=== PATIENT | male | born 1930 | race Caucasian/White ===

== ENCOUNTER 2017-06-18 11:39 | Inpatient (IN) | payer MEDICARE, OTHER ==
[~2017-06-18] VITALS: Ht 175.3 cm; Wt 77.3 kg
[~2017-06-18 11:39] MED LIST: AMIO200T57 PO; AMLO5TAB16 PO; ASPI-611 PO; ATOR10TA PO; FAMO-128 PO; LEVO25TA7 PO; MEMA21CA PO
[2017-06-18 12:06] LABS: BASOPHILS # (AUTO) 0.1 X10'3 (0-0.2); BASOPHILS % (AUTO) 1.4 % (0-1); EOSINOPHILS # (AUTO) 0.2 X10'3 (0-0.9); EOSINOPHILS % (AUTO) 1.4 % (0-6); HEMATOCRIT 35.6 % (42.0-52.0); HEMOGLOBIN 12.1 g/dl (14.0-17.9); LYMPHOCYTES # (AUTO) 1.3 X10'3 (1.1-4.8); LYMPHOCYTES % (AUTO) 12.4 % (21-51); MEAN CORPUSCULAR HGB CONC 34.1 % (33.0-36.5); MEAN CORPUSCULAR VOLUME 90.9 FL (78-98); MEAN PLATELET VOLUME 9.4 FL (7.4-10.4); MONOCYTES % (AUTO) 9.8 % (2-12); NEUTROPHILS # (AUTO) 7.9 X10'3 (1.8-7.7); PLATELET COUNT 191 X10'3 (140-440); RED BLOOD COUNT 3.92 X10'6 (4.70-6.10); RED CELL DISTRIBUTION WIDTH 16.3 % (11.5-14.5); WHITE BLOOD COUNT 10.6 X10'3 (4.5-11.0)
[2017-06-18] MEDS ORDERED: sucralfate 1gm/10ml UD suspension PO ONE (12:10)
[2017-06-18] MEDS ORDERED: pantoprazole 40 MG vial IV ONE (12:10)
[2017-06-18] MEDS ORDERED: mag hydrox/Alum hydrox/simeth 30ml oral suspension PO ONE (12:10)
[2017-06-18] MEDS ORDERED: LIDOcaine Viscous 15ml cup MM PRN (12:10)
[2017-06-18 12:14] LABS: INR 1.2 INR; PROTHROMBIN TIME 11.9 SECONDS (9.0-12.0)
[2017-06-18 12:20] LABS: ALANINE AMINOTRANSFERASE 33 U/L (12-78); ALBUMIN 3.5 G/DL (3.4-5.0); ALBUMIN/GLOBULIN RATIO 0.9 (1.1-1.5); ALKALINE PHOSPHATASE 82 IU/L (46-116); AMYLASE 35 U/L (25-115); ANION GAP 8 (8-16); ASPARTATE AMINO TRANSFERASE 30 U/L (10-37); BILIRUBIN,TOTAL 0.6 MG/DL (0.1-1.0); BLOOD UREA NITROGEN 31 MG/DL (7-18); BUN/CREATININE RATIO 18.6 (5.4-32.0); CALCIUM 9.1 MG/DL (8.5-10.1); CHLORIDE 102 MMOL/L (99-107); CREATININE 1.67 MG/DL (0.60-1.10); GLUCOSE 138 MG/DL (70-104); LIPASE 50 U/L (73-393); POTASSIUM 4.4 MMOL/L (3.5-5.1); SODIUM 136 MMOL/L (135-145); TOTAL CARBON DIOXIDE 26.5 MMOL/L (24-32); TOTAL PROTEIN 7.2 G/DL (6.4-8.2); eGFR 39 ML/MIN
[2017-06-18] MEDS: sucralfate 1gm/10ml UD suspension PO SCH (12:21)
[2017-06-18 12:53] LABS: CLARITY,URINE CLEAR (Clear); COLOR,URINE YELLOW (Yellow); GLUCOSE, URINE NEGATIVE (Neg); KETONES,URINE NEGATIVE (Neg); LEUKOCYTE ESTERASE ,URINE NEGATIVE (Neg); NITRITES, URINE NEGATIVE (Neg); OCCULT BLOOD,URINE NEGATIVE (Neg); PROTEIN,URINE NEGATIVE (Neg); UROBILINOGEN,URINE 0.2 E.U/dL (0.2-1.0)
[2017-06-18 12:56] LABS: UA COLLECTION TYPE CLN CATCH MIDSTREAM
[2017-06-18] MEDS ORDERED: acetaminophen 325mg tablet PO PRN (15:10)
[2017-06-18] MEDS ORDERED: magnesium hydroxide 30ml (MOM) UD suspension PO PRN (15:10)
[2017-06-18] MEDS ORDERED: ondansetron/PF 4mg/2ml inj IV PRN (15:10)
[2017-06-18] MEDS ORDERED: mag hydrox/Alum hydrox/simeth 30ml oral suspension PO PRN (15:10)
[2017-06-18] MEDS: diatr meglu/diatrizoate 30ml oral sol.-(3 dose) bottle PO SCH ×3 (15:20→17:07)
[2017-06-18] MEDS ORDERED: LIDOcaine 2% 10ml TOPICAL JELLY (Urojet) MM ONE (15:55)
[2017-06-18] MEDS: normal saline 1000ml 1,000 ML IV SCH (16:51)
[2017-06-18 21:30] VITALS: BP 130/64
[2017-06-18] MEDS: heparin, porcine 5000 units/ml vial SQ SCH (21:50)
[2017-06-19] MEDS: normal saline 1000ml 1,000 ML IV SCH ×4 (01:08→23:49)
[2017-06-19 04:00] VITALS: BP 108/61
[2017-06-19 05:47] LABS: BASOPHILS % (AUTO) 0.3 % (0-1); EOSINOPHILS # (AUTO) 0.1 X10'3 (0-0.9); EOSINOPHILS % (AUTO) 1.4 % (0-6); HEMATOCRIT 30.4 % (42.0-52.0); HEMOGLOBIN 10.2 g/dl (14.0-17.9); LYMPHOCYTES # (AUTO) 1.1 X10'3 (1.1-4.8); LYMPHOCYTES % (AUTO) 13.8 % (21-51); MEAN CORPUSCULAR HEMOGLOBIN 30.8 PG (27.0-31.0); MEAN CORPUSCULAR HGB CONC 33.7 % (33.0-36.5); MEAN CORPUSCULAR VOLUME 91.4 FL (78-98); MEAN PLATELET VOLUME 10.4 FL (7.4-10.4); MONOCYTES # (AUTO) 1.2 X10'3 (0-0.9); MONOCYTES % (AUTO) 14.3 % (2-12); NEUTROPHILS # (AUTO) 5.6 X10'3 (1.8-7.7); NEUTROPHILS % (AUTO) 70.2 % (42-75); PLATELET COUNT 166 X10'3 (140-440); RED BLOOD COUNT 3.32 X10'6 (4.70-6.10); RED CELL DISTRIBUTION WIDTH 16.1 % (11.5-14.5)
[2017-06-19 05:56] LABS: ALANINE AMINOTRANSFERASE 24 U/L (12-78); ALBUMIN 2.4 G/DL (3.4-5.0); ALBUMIN/GLOBULIN RATIO 0.8 (1.1-1.5); ALKALINE PHOSPHATASE 55 IU/L (46-116); ANION GAP 7 (8-16); ASPARTATE AMINO TRANSFERASE 24 U/L (10-37); BILIRUBIN,TOTAL 0.8 MG/DL (0.1-1.0); BLOOD UREA NITROGEN 29 MG/DL (7-18); BUN/CREATININE RATIO 20.3 (5.4-32.0); CHLORIDE 105 MMOL/L (99-107); CREATININE 1.43 MG/DL (0.60-1.10); GLUCOSE 93 MG/DL (70-104); POTASSIUM 4.1 MMOL/L (3.5-5.1); SODIUM 139 MMOL/L (135-145); TOTAL CARBON DIOXIDE 26.6 MMOL/L (24-32); TOTAL PROTEIN 5.3 G/DL (6.4-8.2); eGFR 47 ML/MIN
[2017-06-19 07:00] VITALS: BP 137/64
[2017-06-19] MEDS: heparin, porcine 5000 units/ml vial SQ SCH ×2 (07:16→20:30)
[2017-06-19] MEDS ORDERED: RISP0.5T3 PO (10:23)
[2017-06-19] MEDS ORDERED: ASPI81TA52 PO (10:23)
[2017-06-19] MEDS ORDERED: FAMO20TA8 PO (10:23)
[2017-06-19] MEDS ORDERED: ATOR10TA70 PO (10:23)
[2017-06-19] MEDS ORDERED: AMIO200T57 PO (10:23)
[2017-06-19] MEDS ORDERED: LEVO25TA7 PO (10:24)
[2017-06-19 11:07] VITALS: BP 106/55
[2017-06-19] MEDS: sucralfate 1gm/10ml UD suspension PO SCH (12:43)
[2017-06-19] MEDS ORDERED: lactulose 20gm/30ml cup PO ONE ×2 (13:05→15:00)
[2017-06-19] MEDS ORDERED: aspirin 81mg tablet.DR PO ONE (13:45)
[2017-06-19] MEDS ORDERED: amiodarone 200mg tablet PO ONE (13:45)
[2017-06-19] MEDS ORDERED: atorvastatin 10mg tablet PO ONE (13:45)
[2017-06-19] MEDS ORDERED: risperiDONE 0.5mg tablet PO ONE (14:40)
[2017-06-19] MEDS: mineral oil 133ml enema RC PRN ×2 (14:58→15:13)
[2017-06-19] MEDS ORDERED: mineral oil 133ml enema RC PRN (15:00)
[2017-06-19 20:00] VITALS: BP 149/75
[2017-06-20] VITALS: BP 148/90
[2017-06-20] MEDS ORDERED: LORazepam 2 mg/ml vial IV ONE (03:55)
[2017-06-20 07:00] VITALS: BP 144/78
[2017-06-20] MEDS: aspirin 81mg tablet.DR PO SCH (08:35)
[2017-06-20] MEDS: amiodarone 200mg tablet PO SCH (08:35)
[2017-06-20] MEDS: risperiDONE 0.5mg tablet PO SCH (08:36)
[2017-06-20] MEDS: levoTHYROXINE 25mcg tablet PO SCH (08:37)
[2017-06-20] MEDS: atorvastatin 10mg tablet PO SCH (08:37)
[2017-06-20] MEDS: heparin, porcine 5000 units/ml vial SQ SCH ×2 (08:40→20:12)
[2017-06-20 08:43] LABS: % FREE PSA 16.9 % (.); PSA, FREE 0.44 ng/mL
[2017-06-20] MEDS ORDERED: bisacodyl 10mg suppository rectal RC STA (09:23)
[2017-06-20] MEDS ORDERED: mineral oil 133ml enema RC PRN (09:25)
[2017-06-20 09:42] LABS: BASOPHILS % (AUTO) 0.5 % (0-1); EOSINOPHILS # (AUTO) 0.2 X10'3 (0-0.9); EOSINOPHILS % (AUTO) 2.3 % (0-6); HEMATOCRIT 31.6 % (42.0-52.0); HEMOGLOBIN 10.6 g/dl (14.0-17.9); LYMPHOCYTES # (AUTO) 1.1 X10'3 (1.1-4.8); LYMPHOCYTES % (AUTO) 15.6 % (21-51); MEAN CORPUSCULAR HEMOGLOBIN 30.9 PG (27.0-31.0); MEAN CORPUSCULAR HGB CONC 33.6 % (33.0-36.5); MEAN CORPUSCULAR VOLUME 91.9 FL (78-98); MEAN PLATELET VOLUME 10.2 FL (7.4-10.4); MONOCYTES # (AUTO) 0.9 X10'3 (0-0.9); MONOCYTES % (AUTO) 12.8 % (2-12); NEUTROPHILS # (AUTO) 4.8 X10'3 (1.8-7.7); NEUTROPHILS % (AUTO) 68.8 % (42-75); PLATELET COUNT 173 X10'3 (140-440); RED BLOOD COUNT 3.44 X10'6 (4.70-6.10); RED CELL DISTRIBUTION WIDTH 16.1 % (11.5-14.5); WHITE BLOOD COUNT 6.9 X10'3 (4.5-11.0)
[2017-06-20 10:01] LABS: ALANINE AMINOTRANSFERASE 28 U/L (12-78); ALBUMIN 2.9 G/DL (3.4-5.0); ALKALINE PHOSPHATASE 60 IU/L (46-116); ANION GAP 9 (8-16); ASPARTATE AMINO TRANSFERASE 37 U/L (10-37); BILIRUBIN,TOTAL 0.7 MG/DL (0.1-1.0); BLOOD UREA NITROGEN 21 MG/DL (7-18); BUN/CREATININE RATIO 16.8 (5.4-32.0); CALCIUM 8.3 MG/DL (8.5-10.1); CHLORIDE 105 MMOL/L (99-107); CREATININE 1.25 MG/DL (0.60-1.10); GLUCOSE 85 MG/DL (70-104); POTASSIUM 3.8 MMOL/L (3.5-5.1); SODIUM 138 MMOL/L (135-145); TOTAL CARBON DIOXIDE 23.9 MMOL/L (24-32); TOTAL PROTEIN 5.9 G/DL (6.4-8.2); eGFR 55 ML/MIN
[2017-06-20] MEDS: magnesium hydroxide 30ml (MOM) UD suspension PO SCH ×7 (11:16→23:00)
[2017-06-20] MEDS: normal saline 1000ml 1,000 ML IV SCH ×2 (11:17→20:13)
[2017-06-20 11:32] VITALS: BP 142/80
[2017-06-20] MEDS ORDERED: nitroGLYCERIN 0.4mg SUBLingual tab SL PRN (16:45)
[2017-06-20] MEDS ORDERED: HYDROcodone/acetaminophen 5mg/325mg tablet PO PRN (16:45)
[2017-06-20 18:00] VITALS: BP 119/53
[2017-06-21] VITALS: BP 143/76
[2017-06-21] MEDS: magnesium hydroxide 30ml (MOM) UD suspension PO SCH ×8 (01:00→15:00)
[2017-06-21 06:09] LABS: BASOPHILS % (AUTO) 0.5 % (0-1); EOSINOPHILS # (AUTO) 0.3 X10'3 (0-0.9); EOSINOPHILS % (AUTO) 4.2 % (0-6); HEMATOCRIT 30.3 % (42.0-52.0); HEMOGLOBIN 10.1 g/dl (14.0-17.9); LYMPHOCYTES # (AUTO) 1.2 X10'3 (1.1-4.8); LYMPHOCYTES % (AUTO) 16.2 % (21-51); MEAN CORPUSCULAR HEMOGLOBIN 30.6 PG (27.0-31.0); MEAN CORPUSCULAR HGB CONC 33.3 % (33.0-36.5); MEAN CORPUSCULAR VOLUME 91.8 FL (78-98); MEAN PLATELET VOLUME 9.9 FL (7.4-10.4); MONOCYTES % (AUTO) 13.4 % (2-12); NEUTROPHILS # (AUTO) 4.8 X10'3 (1.8-7.7); NEUTROPHILS % (AUTO) 65.7 % (42-75); PLATELET COUNT 172 X10'3 (140-440); RED CELL DISTRIBUTION WIDTH 15.5 % (11.5-14.5); WHITE BLOOD COUNT 7.4 X10'3 (4.5-11.0)
[2017-06-21 06:19] LABS: ALANINE AMINOTRANSFERASE 30 U/L (12-78); ALBUMIN 2.7 G/DL (3.4-5.0); ALBUMIN/GLOBULIN RATIO 0.9 (1.1-1.5); ALKALINE PHOSPHATASE 55 IU/L (46-116); ANION GAP 9 (8-16); ASPARTATE AMINO TRANSFERASE 34 U/L (10-37); BILIRUBIN,TOTAL 0.7 MG/DL (0.1-1.0); BLOOD UREA NITROGEN 20 MG/DL (7-18); BUN/CREATININE RATIO 16.5 (5.4-32.0); CALCIUM 8.1 MG/DL (8.5-10.1); CHLORIDE 108 MMOL/L (99-107); CREATININE 1.21 MG/DL (0.60-1.10); GLUCOSE 88 MG/DL (70-104); POTASSIUM 3.9 MMOL/L (3.5-5.1); SODIUM 141 MMOL/L (135-145); TOTAL CARBON DIOXIDE 24.2 MMOL/L (24-32); TOTAL PROTEIN 5.7 G/DL (6.4-8.2); eGFR 57 ML/MIN
[2017-06-21 07:00] VITALS: BP 130/81
[2017-06-21] MEDS: normal saline 1000ml 1,000 ML IV SCH (09:27)
[2017-06-21] MEDS: amiodarone 200mg tablet PO SCH (09:33)
[2017-06-21] MEDS: atorvastatin 10mg tablet PO SCH (09:34)
[2017-06-21] MEDS: aspirin 81mg tablet.DR PO SCH (09:34)
[2017-06-21] MEDS: levoTHYROXINE 25mcg tablet PO SCH (09:34)
[2017-06-21] MEDS: risperiDONE 0.5mg tablet PO SCH (09:35)
[2017-06-21] MEDS: heparin, porcine 5000 units/ml vial SQ SCH (09:38)
[2017-06-21 12:00] VITALS: BP 142/76
== END 2017-06-21 16:37 | DRG 683 ==
LOC: ER 11:39 → ED HOLD 15:08 → SUR 3N 21:30
PROVIDERS: ADMIT Internal Medicine; ATTEND Family Medicine
PROC: 0T9B70Z Drainage of Bladder with Drainage Device, Via Natural or Artificial Opening (ICD-10-PCS; principal; 2017-06-18)
DX: N17.9 Acute kidney failure, unspecified (principal); J90 Pleural effusion, not elsewhere classified; I48.91 Unspecified atrial fibrillation; N13.4 Hydroureter; E86.0 Dehydration; F03.90 Unspecified dementia, unspecified severity, without behavioral disturbance, psychotic disturbance, mood disturbance, and anxiety; E03.9 Hypothyroidism, unspecified; E78.5 Hyperlipidemia, unspecified; K56.41 Fecal impaction; N13.39 Other hydronephrosis; K21.9 Gastro-esophageal reflux disease without esophagitis; K44.9 Diaphragmatic hernia without obstruction or gangrene; N32.0 Bladder-neck obstruction; N32.89 Other specified disorders of bladder; N40.0 Benign prostatic hyperplasia without lower urinary tract symptoms; I25.10 Atherosclerotic heart disease of native coronary artery without angina pectoris; M10.9 Gout, unspecified; I12.9 Hypertensive chronic kidney disease with stage 1 through stage 4 chronic kidney disease, or unspecified chronic kidney disease; K57.30 Diverticulosis of large intestine without perforation or abscess without bleeding; N18.9 Chronic kidney disease, unspecified; Z90.49 Acquired absence of other specified parts of digestive tract; Z95.0 Presence of cardiac pacemaker; Z79.899 Other long term (current) drug therapy; Z79.82 Long term (current) use of aspirin
CPT/HCPCS: 36415; 71045; 74176; 76700; 80053; 81003; 82150; 83690; 83880; 84153; 84154; 84484; 85025; 85610; 87070; 93005; 93306; 96374; 97110; 97116; 97161; 99285; A4315; A4353; C9113; J1644; J2060; J7030; Q9963

== ENCOUNTER 2017-09-12 16:33 | Inpatient (IN) | payer MEDICARE, OTHER ==
[~2017-09-12] VITALS: Ht 180.3 cm; Wt 75.0 kg
[~2017-09-12 16:33] MED LIST changes: +AMIO200T40 PO; -AMIO200T57 PO; -AMLO5TAB16 PO; -ASPI-611 PO; +ASPI81TA52 PO; -ATOR10TA PO; +ATOR10TA70 PO; -FAMO-128 PO; +FAMO20TA8 PO; -MEMA21CA PO; +RISP0.5T3 PO
[2017-09-12] MEDS ORDERED: fentaNYL/PF 50MCG/1 ML 2ML syringe IV ONE (16:45)
[2017-09-12] MEDS ORDERED: ondansetron/PF 4mg/2ml inj IV ONE (16:45)
[2017-09-12] MEDS ORDERED: normal saline 1000ML IV soln IV ONE (17:30)
[2017-09-12 17:31] LABS: BASOPHILS % (AUTO) 0.2 % (0-1); EOSINOPHILS # (AUTO) 0.1 X10'3 (0-0.9); EOSINOPHILS % (AUTO) 0.8 % (0-6); HEMATOCRIT 28.7 % (42.0-52.0); HEMOGLOBIN 9.4 g/dl (14.0-17.9); LYMPHOCYTES # (AUTO) 0.7 X10'3 (1.1-4.8); LYMPHOCYTES % (AUTO) 4.9 % (21-51); MEAN CORPUSCULAR HEMOGLOBIN 28.6 PG (27.0-31.0); MEAN CORPUSCULAR HGB CONC 32.7 % (33.0-36.5); MEAN CORPUSCULAR VOLUME 87.7 FL (78-98); MEAN PLATELET VOLUME 9.5 FL (7.4-10.4); MONOCYTES # (AUTO) 1.3 X10'3 (0-0.9); MONOCYTES % (AUTO) 9.6 % (2-12); NEUTROPHILS # (AUTO) 11.4 X10'3 (1.8-7.7); NEUTROPHILS % (AUTO) 84.5 % (42-75); PLATELET COUNT 209 X10'3 (140-440); RED BLOOD COUNT 3.27 X10'6 (4.70-6.10); RED CELL DISTRIBUTION WIDTH 16.8 % (11.5-14.5); WHITE BLOOD COUNT 13.4 X10'3 (4.5-11.0)
[2017-09-12 17:43] LABS: INR 1.2 INR; PROTHROMBIN TIME 12.3 SECONDS (9.0-12.0)
[2017-09-12 17:50] LABS: ALANINE AMINOTRANSFERASE 24 U/L (12-78); ALBUMIN 2.3 G/DL (3.4-5.0); ALBUMIN/GLOBULIN RATIO 0.6 (1.1-1.5); ALKALINE PHOSPHATASE 71 IU/L (46-116); ANION GAP 9 (8-16); ASPARTATE AMINO TRANSFERASE 20 U/L (10-37); BILIRUBIN,TOTAL 0.5 MG/DL (0.1-1.0); BLOOD UREA NITROGEN 39 MG/DL (7-18); BUN/CREATININE RATIO 23.2 (5.4-32.0); CALCIUM 8.5 MG/DL (8.5-10.1); CHLORIDE 106 MMOL/L (99-107); CREATININE 1.68 MG/DL (0.60-1.10); GLUCOSE 127 MG/DL (70-104); POTASSIUM 3.9 MMOL/L (3.5-5.1); SODIUM 141 MMOL/L (135-145); TOTAL CARBON DIOXIDE 26.4 MMOL/L (24-32); TOTAL PROTEIN 6.2 G/DL (6.4-8.2); eGFR 39 ML/MIN
[2017-09-12 17:54] LABS: CLARITY,URINE CLOUDY (Clear); COLOR,URINE YELLOW (Yellow); GLUCOSE, URINE NEGATIVE (Neg); KETONES,URINE NEGATIVE (Neg); LEUKOCYTE ESTERASE ,URINE LARGE (Neg); NITRITES, URINE NEGATIVE (Neg); OCCULT BLOOD,URINE LARGE (Neg); PH,URINE 5.5 (4.8-8.0); PROTEIN,URINE 30 mg/dl (Neg); UROBILINOGEN,URINE 0.2 E.U/dL (0.2-1.0)
[2017-09-12 17:57] LABS: UA COLLECTION TYPE FOLEY CATH
[2017-09-12] MEDS ORDERED: IBUP-1984 PO (17:58)
[2017-09-12] MEDS ORDERED: LORA0.5T PO (17:58)
[2017-09-12] MEDS ORDERED: DOCU-28 PO (17:58)
[2017-09-12] MEDS ORDERED: ACET-1008 PO (17:58)
[2017-09-12] MEDS ORDERED: acetaminophen 325mg tablet PO PRN (18:10)
[2017-09-12] MEDS ORDERED: bisacodyl 10mg suppository rectal RC PRN (18:10)
[2017-09-12] MEDS ORDERED: magnesium Cl slow-release 64mg tablet PO PRN (18:10)
[2017-09-12] MEDS ORDERED: ondansetron/PF 4mg/2ml inj IV PRN (18:10)
[2017-09-12] MEDS ORDERED: magnesium 4gm in 100ml NS 100 ML IV PRN (18:10)
[2017-09-12] MEDS ORDERED: magnesium 1gm/100ml D5W IVPB 100 ML IV PRN (18:10)
[2017-09-12] MEDS ORDERED: mag hydrox/Alum hydrox/simeth 30ml oral suspension PO PRN ×2 (18:10→18:25)
[2017-09-12] MEDS ORDERED: morphine 4 MG/ML inj SYRINge IV PRN (18:10)
[2017-09-12] MEDS ORDERED: potassium Cl 20 mEq SR tablet PO PRN ×2 (18:10)
[2017-09-12] MEDS ORDERED: magnesium hydroxide 30ml (MOM) UD suspension PO PRN (18:10)
[2017-09-12] MEDS ORDERED: potassium Cl 40MEQ/NS 500ml 500 ML IV PRN ×2 (18:10)
[2017-09-12 18:12] LABS: RBC,URINE 20-50 /HPF (0-2); WBC,URINE TNTC /HPF (0-4)
[2017-09-12 18:13] LABS: BACTERIA,URINE 4+ /HPF (Neg); SQUAMOUS EPITHELIAL CELL,UR FEW /LPF (FEW)
[2017-09-12] MEDS ORDERED: LORazepam 2 mg/ml vial IV PRN (18:15)
[2017-09-12] MEDS ORDERED: ASCO120G2 (18:16)
[2017-09-12] MEDS ORDERED: MELA3TAB PO (18:16)
[2017-09-12] MEDS ORDERED: POTA8TAB8 PO (18:16)
[2017-09-12] MEDS ORDERED: LEVO25TA2 PO (18:16)
[2017-09-12] MEDS ORDERED: MAG355OR18 PO (18:16)
[2017-09-12] MEDS ORDERED: TRAM50TA2 PO (18:16)
[2017-09-12] MEDS ORDERED: RISP0.5T74 PO (18:16)
[2017-09-12] MEDS ORDERED: FURO-150 PO (18:16)
[2017-09-12] MEDS ORDERED: LIDOCAINE GEL (18:16)
[2017-09-12] MEDS ORDERED: LORazepam 0.5 MG tablet PO PRN (18:25)
[2017-09-12] MEDS: potassium Cl 20mEq in NS 1,000 ML IV SCH (18:47)
[2017-09-12] MEDS: CefTRIAXone/D5W-Rocephin 1gm 50 ML IV SCH (18:47)
[2017-09-12] MEDS: risperiDONE 0.5mg tablet PO SCH (19:50)
[2017-09-12] MEDS: traMADol 50MG tablet PO SCH (19:50)
[2017-09-12] MEDS: docusate sod 100mg capsule PO SCH (19:50)
[2017-09-12] MEDS: famotidine 20mg tablet PO SCH (19:51)
[2017-09-12] MEDS ORDERED: docusate sod 100mg capsule PO SCH (20:00)
[2017-09-12] MEDS: Melatonin 3mg tablet PO SCH (21:00)
[2017-09-12 21:30] VITALS: BP 163/71
[2017-09-13] VITALS (18 sets, daily range): BP systolic 103–187; BP diastolic 48–87
[2017-09-13] MEDS: traMADol 50MG tablet PO SCH ×4 (02:00→20:00)
[2017-09-13] MEDS ORDERED: vancomycin inj. 750 MG in normal saline 250ml IV soln 250 ML IV SCH (03:00)
[2017-09-13 05:40] LABS: BASOPHILS % (AUTO) 0.1 % (0-1); EOSINOPHILS # (AUTO) 0.2 X10'3 (0-0.9); EOSINOPHILS % (AUTO) 1.6 % (0-6); HEMATOCRIT 30.3 % (42.0-52.0); HEMOGLOBIN 9.8 g/dl (14.0-17.9); LYMPHOCYTES # (AUTO) 1.1 X10'3 (1.1-4.8); LYMPHOCYTES % (AUTO) 8.6 % (21-51); MEAN CORPUSCULAR HEMOGLOBIN 28.7 PG (27.0-31.0); MEAN CORPUSCULAR HGB CONC 32.4 % (33.0-36.5); MEAN CORPUSCULAR VOLUME 88.6 FL (78-98); MEAN PLATELET VOLUME 9.8 FL (7.4-10.4); MONOCYTES # (AUTO) 1.4 X10'3 (0-0.9); MONOCYTES % (AUTO) 11.5 % (2-12); NEUTROPHILS # (AUTO) 9.7 X10'3 (1.8-7.7); NEUTROPHILS % (AUTO) 78.2 % (42-75); PLATELET COUNT 226 X10'3 (140-440); RED BLOOD COUNT 3.42 X10'6 (4.70-6.10); RED CELL DISTRIBUTION WIDTH 16.3 % (11.5-14.5); WHITE BLOOD COUNT 12.4 X10'3 (4.5-11.0)
[2017-09-13 06:23] LABS: ALANINE AMINOTRANSFERASE 22 U/L (12-78); ALBUMIN 2.3 G/DL (3.4-5.0); ALBUMIN/GLOBULIN RATIO 0.5 (1.1-1.5); ALKALINE PHOSPHATASE 76 IU/L (46-116); ANION GAP 9 (8-16); ASPARTATE AMINO TRANSFERASE 19 U/L (10-37); BILIRUBIN,TOTAL 0.4 MG/DL (0.1-1.0); BLOOD UREA NITROGEN 30 MG/DL (7-18); BUN/CREATININE RATIO 21.9 (5.4-32.0); CALCIUM 8.2 MG/DL (8.5-10.1); CHLORIDE 107 MMOL/L (99-107); CREATININE 1.37 MG/DL (0.60-1.10); GLUCOSE 105 MG/DL (70-104); MAGNESIUM 2.2 MG/DL (1.5-2.4); SODIUM 142 MMOL/L (135-145); TOTAL CARBON DIOXIDE 26.3 MMOL/L (24-32); TOTAL PROTEIN 6.5 G/DL (6.4-8.2); eGFR 49 ML/MIN
[2017-09-13] MEDS: famotidine 20mg tablet PO SCH ×2 (08:00→20:00)
[2017-09-13] MEDS: risperiDONE 0.5mg tablet PO SCH ×2 (08:00→20:00)
[2017-09-13] MEDS ORDERED: levoTHYROXINE 25mcg tablet PO SCH (08:00)
[2017-09-13] MEDS: aspirin 81mg tablet.DR PO SCH (08:00)
[2017-09-13] MEDS: K and/or MAG REPLACEMENT MC SCH (08:00)
[2017-09-13] MEDS: atorvastatin 10mg tablet PO SCH (08:00)
[2017-09-13] MEDS: levoTHYROXINE 25mcg tablet PO SCH (08:00)
[2017-09-13] MEDS: docusate sod 100mg capsule PO SCH ×2 (08:00→20:00)
[2017-09-13] MEDS: amiodarone 200mg tablet PO SCH (08:38)
[2017-09-13] MEDS: CefTRIAXone/D5W-Rocephin 1gm 50 ML IV SCH (08:39)
[2017-09-13] MEDS: HYDROcodone/acetaminophen 5mg/325mg tablet PO PRN (10:31)
[2017-09-13] MEDS ORDERED: ceFAZolin 1GM/D5W- ADD-VANTAGE 50 ML IV ONE (12:00)
[2017-09-13] MEDS: potassium Cl 20mEq in NS 1,000 ML IV SCH ×2 (12:18→21:07)
[2017-09-13] MEDS ORDERED: vancomycin 1,000mg inj ONE (13:25)
[2017-09-13] MEDS ORDERED: ceFAZolin 1000mg inj ONE ×2 (13:25→17:30)
[2017-09-13] MEDS ORDERED: fentaNYL/PF 50MCG/1 ML 2ML syringe ONE ×2 (16:02→17:11)
[2017-09-13] MEDS ORDERED: propofol inj 20 ML IV ONE (16:03)
[2017-09-13] MEDS ORDERED: LIDOcaine 2% (20mg/ml) 5ml vial ONE (16:03)
[2017-09-13] MEDS ORDERED: rocuronium 10mg/ml inj IV ONE (16:03)
[2017-09-13] MEDS ORDERED: sevoflurane 250ml liquid IH ONE (16:11)
[2017-09-13] MEDS ORDERED: morphine 4 MG/ML inj SYRINge IV PRN (16:45)
[2017-09-13] MEDS ORDERED: ondansetron/PF 4mg/2ml inj IV PRN (16:45)
[2017-09-13] MEDS ORDERED: ringers solution, lacted 1,000 ML IV SCH (16:45)
[2017-09-13] MEDS ORDERED: neostigmine methylsulfate 1 MG/ML 10ml vial ONE (17:30)
[2017-09-13] MEDS ORDERED: glycopyrrolate 0.2mg/ml inj ONE (17:30)
[2017-09-13] MEDS ORDERED: ondansetron/PF 4mg/2ml inj ONE (17:30)
[2017-09-13 18:36] LABS: ISTAT CREATININE 1.1 mg/dL (0.8-1.3); ISTAT HGB 11.6 g/dl (14.0-18.0); ISTAT IONIZED CALCIUM 1.24 mmol/L (1.03-1.32); ISTAT K 4.3 mmol/L (3.5-5.1); POC BUN/CREATININE RATIO 25.5 (5.4-32.0)
[2017-09-13] MEDS: lactobacillus rhamnosus 10,000 MMU CELLS/CAPSULE PO SCH (20:00)
[2017-09-13] MEDS: Melatonin 3mg tablet PO SCH (21:00)
[2017-09-13] MEDS: morphine 4 MG/ML inj SYRINge IV PRN (23:29)
[2017-09-14] MEDS: ceFAZolin 1GM/D5W- ADD-VANTAGE 50 ML IV SCH ×2 (00:42→08:24)
[2017-09-14 02:00] VITALS: BP 139/58
[2017-09-14] MEDS: traMADol 50MG tablet PO SCH ×4 (02:54→20:37)
[2017-09-14] MEDS: morphine 4 MG/ML inj SYRINge IV PRN ×2 (05:41→15:01)
[2017-09-14 06:00] VITALS: BP 132/73
[2017-09-14 06:48] LABS: BASOPHILS % (AUTO) 0.1 % (0-1); EOSINOPHILS # (AUTO) 0.2 X10'3 (0-0.9); EOSINOPHILS % (AUTO) 1.6 % (0-6); HEMATOCRIT 28.4 % (42.0-52.0); HEMOGLOBIN 9.3 g/dl (14.0-17.9); MEAN CORPUSCULAR HEMOGLOBIN 28.9 PG (27.0-31.0); MEAN CORPUSCULAR HGB CONC 32.8 % (33.0-36.5); MEAN CORPUSCULAR VOLUME 88.1 FL (78-98); MEAN PLATELET VOLUME 9.9 FL (7.4-10.4); MONOCYTES # (AUTO) 1.4 X10'3 (0-0.9); MONOCYTES % (AUTO) 9.4 % (2-12); NEUTROPHILS # (AUTO) 11.8 X10'3 (1.8-7.7); NEUTROPHILS % (AUTO) 81.9 % (42-75); PLATELET COUNT 223 X10'3 (140-440); RED BLOOD COUNT 3.22 X10'6 (4.70-6.10); RED CELL DISTRIBUTION WIDTH 16.7 % (11.5-14.5); WHITE BLOOD COUNT 14.4 X10'3 (4.5-11.0)
[2017-09-14 07:07] LABS: ALANINE AMINOTRANSFERASE 19 U/L (12-78); ALBUMIN/GLOBULIN RATIO 0.5 (1.1-1.5); ALKALINE PHOSPHATASE 64 IU/L (46-116); ANION GAP 5 (8-16); ASPARTATE AMINO TRANSFERASE 19 U/L (10-37); BILIRUBIN,TOTAL 0.4 MG/DL (0.1-1.0); BLOOD UREA NITROGEN 24 MG/DL (7-18); CALCIUM 7.8 MG/DL (8.5-10.1); CHLORIDE 109 MMOL/L (99-107); CREATININE 1.26 MG/DL (0.60-1.10); GLUCOSE 93 MG/DL (70-104); MAGNESIUM 1.9 MG/DL (1.5-2.4); POTASSIUM 4.2 MMOL/L (3.5-5.1); SODIUM 140 MMOL/L (135-145); TOTAL CARBON DIOXIDE 25.6 MMOL/L (24-32); eGFR 54 ML/MIN
[2017-09-14] MEDS: docusate sod 100mg capsule PO SCH ×2 (08:23→20:38)
[2017-09-14] MEDS: lactobacillus rhamnosus 10,000 MMU CELLS/CAPSULE PO SCH ×2 (08:23→20:38)
[2017-09-14] MEDS: atorvastatin 10mg tablet PO SCH (08:23)
[2017-09-14] MEDS: aspirin 81mg tablet.DR PO SCH (08:23)
[2017-09-14] MEDS: amiodarone 200mg tablet PO SCH (08:24)
[2017-09-14] MEDS: famotidine 20mg tablet PO SCH ×2 (08:24→20:38)
[2017-09-14] MEDS: levoTHYROXINE 25mcg tablet PO SCH (08:24)
[2017-09-14] MEDS: risperiDONE 0.5mg tablet PO SCH ×2 (08:24→20:38)
[2017-09-14] MEDS: enoxaparin 40mg/0.4ml syringe SUBCUT SCH (08:24)
[2017-09-14] MEDS: K and/or MAG REPLACEMENT MC SCH (08:44)
[2017-09-14] MEDS: CefTRIAXone/D5W-Rocephin 1gm 50 ML IV SCH (08:44)
[2017-09-14 10:00] VITALS: BP 131/53
[2017-09-14] MEDS: levoFLOXACIN-Levaquin 250mg/D5 50 ML IV SCH (11:37)
[2017-09-14] MEDS: potassium Cl 20mEq in NS 1,000 ML IV SCH (13:11)
[2017-09-14 14:00] VITALS: BP 120/75
[2017-09-14 18:00] VITALS: BP 100/51
[2017-09-14] MEDS: Melatonin 3mg tablet PO SCH (20:38)
[2017-09-14 22:00] VITALS: BP 92/47
[2017-09-15] MEDS: traMADol 50MG tablet PO SCH ×4 (02:53→19:28)
[2017-09-15] MEDS: potassium Cl 20mEq in NS 1,000 ML IV SCH ×2 (02:53→17:40)
[2017-09-15] MEDS: morphine 4 MG/ML inj SYRINge IV PRN ×2 (03:26→08:03)
[2017-09-15 05:00] VITALS: BP 130/82
[2017-09-15] MEDS: K and/or MAG REPLACEMENT MC SCH (08:00)
[2017-09-15] MEDS: levoFLOXACIN-Levaquin 250mg/D5 50 ML IV SCH (08:03)
[2017-09-15] MEDS: docusate sod 100mg capsule PO SCH ×2 (08:06→19:28)
[2017-09-15] MEDS: levoTHYROXINE 25mcg tablet PO SCH (08:07)
[2017-09-15] MEDS: lactobacillus rhamnosus 10,000 MMU CELLS/CAPSULE PO SCH ×2 (08:07→19:28)
[2017-09-15] MEDS: risperiDONE 0.5mg tablet PO SCH ×2 (08:07→19:28)
[2017-09-15] MEDS: famotidine 20mg tablet PO SCH ×2 (08:07→19:28)
[2017-09-15] MEDS: aspirin 81mg tablet.DR PO SCH (08:07)
[2017-09-15] MEDS: amiodarone 200mg tablet PO SCH (08:08)
[2017-09-15] MEDS: atorvastatin 10mg tablet PO SCH (08:08)
[2017-09-15] MEDS: enoxaparin 40mg/0.4ml syringe SUBCUT SCH (08:09)
[2017-09-15 08:10] LABS: ALANINE AMINOTRANSFERASE 11 U/L (12-78); ALBUMIN 1.7 G/DL (3.4-5.0); ALBUMIN/GLOBULIN RATIO 0.5 (1.1-1.5); ALKALINE PHOSPHATASE 61 IU/L (46-116); ANION GAP 5 (8-16); ASPARTATE AMINO TRANSFERASE 19 U/L (10-37); BASOPHILS % (AUTO) 0 % (0-1); BILIRUBIN,TOTAL 0.4 MG/DL (0.1-1.0); BLOOD UREA NITROGEN 25 MG/DL (7-18); BUN/CREATININE RATIO 18.8 (5.4-32.0); CALCIUM 7.9 MG/DL (8.5-10.1); CHLORIDE 108 MMOL/L (99-107); CREATININE 1.33 MG/DL (0.60-1.10); EOSINOPHILS # (AUTO) 0.3 X10'3 (0-0.9); EOSINOPHILS % (AUTO) 1.9 % (0-6); GLUCOSE 110 MG/DL (70-104); HEMATOCRIT 25.9 % (42.0-52.0); HEMOGLOBIN 8.5 g/dl (14.0-17.9); LYMPHOCYTES # (AUTO) 1.5 X10'3 (1.1-4.8); LYMPHOCYTES % (AUTO) 10.9 % (21-51); MEAN CORPUSCULAR HEMOGLOBIN 28.7 PG (27.0-31.0); MEAN CORPUSCULAR HGB CONC 32.9 % (33.0-36.5); MEAN CORPUSCULAR VOLUME 87.1 FL (78-98); MEAN PLATELET VOLUME 9.9 FL (7.4-10.4); MONOCYTES # (AUTO) 1.7 X10'3 (0-0.9); MONOCYTES % (AUTO) 12.7 % (2-12); NEUTROPHILS # (AUTO) 9.9 X10'3 (1.8-7.7); NEUTROPHILS % (AUTO) 74.5 % (42-75); PLATELET COUNT 212 X10'3 (140-440); POTASSIUM 4.4 MMOL/L (3.5-5.1); RED BLOOD COUNT 2.97 X10'6 (4.70-6.10); RED CELL DISTRIBUTION WIDTH 16.8 % (11.5-14.5); SODIUM 138 MMOL/L (135-145); TOTAL CARBON DIOXIDE 25.4 MMOL/L (24-32); TOTAL PROTEIN 5.4 G/DL (6.4-8.2); WHITE BLOOD COUNT 13.3 X10'3 (4.5-11.0); eGFR 51 ML/MIN
[2017-09-15] MEDS: nitrofuran/nitrofuran macrocrysal 100 MG capsule PO SCH ×2 (13:10→18:23)
[2017-09-15 18:00] VITALS: BP 124/57
[2017-09-15] MEDS: HYDROcodone/acetaminophen 5mg/325mg tablet PO PRN (18:22)
[2017-09-15] MEDS: Melatonin 3mg tablet PO SCH (19:28)
[2017-09-15 22:00] VITALS: BP 94/54
[2017-09-16] MEDS: traMADol 50MG tablet PO SCH ×4 (02:00→23:08)
[2017-09-16] MEDS: HYDROcodone/acetaminophen 10/325mg tab PO PRN ×2 (02:17→06:02)
[2017-09-16 06:54] LABS: BASOPHILS % (AUTO) 0.1 % (0-1); EOSINOPHILS # (AUTO) 0.2 X10'3 (0-0.9); EOSINOPHILS % (AUTO) 1.8 % (0-6); HEMATOCRIT 26.7 % (42.0-52.0); HEMOGLOBIN 8.6 g/dl (14.0-17.9); LYMPHOCYTES # (AUTO) 1.6 X10'3 (1.1-4.8); LYMPHOCYTES % (AUTO) 11.9 % (21-51); MEAN CORPUSCULAR HEMOGLOBIN 28.5 PG (27.0-31.0); MEAN CORPUSCULAR HGB CONC 32.3 % (33.0-36.5); MEAN CORPUSCULAR VOLUME 88.2 FL (78-98); MONOCYTES # (AUTO) 1.1 X10'3 (0-0.9); MONOCYTES % (AUTO) 8.2 % (2-12); NEUTROPHILS # (AUTO) 10.7 X10'3 (1.8-7.7); PLATELET COUNT 229 X10'3 (140-440); RED BLOOD COUNT 3.03 X10'6 (4.70-6.10); RED CELL DISTRIBUTION WIDTH 16.7 % (11.5-14.5); WHITE BLOOD COUNT 13.8 X10'3 (4.5-11.0)
[2017-09-16 07:20] VITALS: BP 114/60
[2017-09-16 07:27] LABS: ALANINE AMINOTRANSFERASE 12 U/L (12-78); ALBUMIN 1.9 G/DL (3.4-5.0); ALBUMIN/GLOBULIN RATIO 0.4 (1.1-1.5); ALKALINE PHOSPHATASE 78 IU/L (46-116); ANION GAP 8 (8-16); ASPARTATE AMINO TRANSFERASE 22 U/L (10-37); BILIRUBIN,TOTAL 0.5 MG/DL (0.1-1.0); BLOOD UREA NITROGEN 27 MG/DL (7-18); BUN/CREATININE RATIO 21.1 (5.4-32.0); CALCIUM 8.1 MG/DL (8.5-10.1); CHLORIDE 104 MMOL/L (99-107); CREATININE 1.28 MG/DL (0.60-1.10); GLUCOSE 104 MG/DL (70-104); POTASSIUM 4.3 MMOL/L (3.5-5.1); SODIUM 137 MMOL/L (135-145); TOTAL CARBON DIOXIDE 25.1 MMOL/L (24-32); TOTAL PROTEIN 6.5 G/DL (6.4-8.2); eGFR 53 ML/MIN
[2017-09-16] MEDS: K and/or MAG REPLACEMENT MC SCH (08:00)
[2017-09-16] MEDS: levoTHYROXINE 25mcg tablet PO SCH (08:20)
[2017-09-16] MEDS: nitrofuran/nitrofuran macrocrysal 100 MG capsule PO SCH (08:20)
[2017-09-16] MEDS: aspirin 81mg tablet.DR PO SCH (08:20)
[2017-09-16] MEDS: amiodarone 200mg tablet PO SCH (08:20)
[2017-09-16] MEDS: atorvastatin 10mg tablet PO SCH (08:20)
[2017-09-16] MEDS: docusate sod 100mg capsule PO SCH ×2 (08:20→20:00)
[2017-09-16] MEDS: risperiDONE 0.5mg tablet PO SCH ×2 (08:20→23:08)
[2017-09-16] MEDS: famotidine 20mg tablet PO SCH ×2 (08:20→23:08)
[2017-09-16] MEDS: lactobacillus rhamnosus 10,000 MMU CELLS/CAPSULE PO SCH ×2 (08:20→20:00)
[2017-09-16] MEDS: enoxaparin 40mg/0.4ml syringe SUBCUT SCH (08:21)
[2017-09-16] MEDS: potassium Cl 20mEq in NS 1,000 ML IV SCH (09:13)
[2017-09-16] MEDS: levoFLOXACIN-Levaquin 250mg/D5 50 ML IV SCH (09:13)
[2017-09-16] MEDS: morphine 4 MG/ML inj SYRINge IV PRN (15:21)
[2017-09-16 18:00] VITALS: BP 140/72
[2017-09-16] MEDS: linezolid 600mg tablet PO SCH (20:00)
[2017-09-16 22:00] VITALS: BP 121/61
[2017-09-16] MEDS: Melatonin 3mg tablet PO SCH (23:30)
[2017-09-17] MEDS: traMADol 50MG tablet PO SCH ×5 (02:00→19:15)
[2017-09-17 06:00] VITALS: BP 131/61
[2017-09-17 07:28] LABS: BASOPHILS % (AUTO) 0.2 % (0-1); EOSINOPHILS # (AUTO) 0.3 X10'3 (0-0.9); EOSINOPHILS % (AUTO) 2.2 % (0-6); HEMATOCRIT 26.3 % (42.0-52.0); HEMOGLOBIN 8.6 g/dl (14.0-17.9); LYMPHOCYTES # (AUTO) 0.9 X10'3 (1.1-4.8); LYMPHOCYTES % (AUTO) 7.5 % (21-51); MEAN CORPUSCULAR HEMOGLOBIN 28.5 PG (27.0-31.0); MEAN CORPUSCULAR HGB CONC 32.5 % (33.0-36.5); MEAN CORPUSCULAR VOLUME 87.5 FL (78-98); MEAN PLATELET VOLUME 10.5 FL (7.4-10.4); MONOCYTES # (AUTO) 1.3 X10'3 (0-0.9); MONOCYTES % (AUTO) 10.1 % (2-12); NEUTROPHILS # (AUTO) 9.9 X10'3 (1.8-7.7); PLATELET COUNT 202 X10'3 (140-440); RED CELL DISTRIBUTION WIDTH 15.9 % (11.5-14.5); WHITE BLOOD COUNT 12.4 X10'3 (4.5-11.0)
[2017-09-17] MEDS: morphine 4 MG/ML inj SYRINge IV PRN (07:36)
[2017-09-17 07:39] LABS: LARGE PLATELETS FEW; PLATELET ESTIMATE NORMAL
[2017-09-17] MEDS: HYDROcodone/acetaminophen 10/325mg tab PO PRN ×2 (07:49→15:00)
[2017-09-17 07:59] LABS: ALANINE AMINOTRANSFERASE 18 U/L (12-78); ALBUMIN 1.9 G/DL (3.4-5.0); ALBUMIN/GLOBULIN RATIO 0.5 (1.1-1.5); ALKALINE PHOSPHATASE 74 IU/L (46-116); ANION GAP 8 (8-16); ASPARTATE AMINO TRANSFERASE 32 U/L (10-37); BILIRUBIN,TOTAL 0.5 MG/DL (0.1-1.0); BLOOD UREA NITROGEN 26 MG/DL (7-18); BUN/CREATININE RATIO 21.8 (5.4-32.0); CALCIUM 8.1 MG/DL (8.5-10.1); CHLORIDE 103 MMOL/L (99-107); CREATININE 1.19 MG/DL (0.60-1.10); GLUCOSE 90 MG/DL (70-104); MAGNESIUM 2.1 MG/DL (1.5-2.4); POTASSIUM 4.2 MMOL/L (3.5-5.1); SODIUM 134 MMOL/L (135-145); TOTAL CARBON DIOXIDE 23.4 MMOL/L (24-32); TOTAL PROTEIN 6.1 G/DL (6.4-8.2); eGFR 58 ML/MIN
[2017-09-17] MEDS: K and/or MAG REPLACEMENT MC SCH (08:00)
[2017-09-17] MEDS: levoFLOXACIN-Levaquin 250mg/D5 50 ML IV SCH (08:00)
[2017-09-17] MEDS: lactobacillus rhamnosus 10,000 MMU CELLS/CAPSULE PO SCH ×3 (08:00→19:14)
[2017-09-17] MEDS: levoTHYROXINE 25mcg tablet PO SCH ×2 (08:00→08:58)
[2017-09-17] MEDS: risperiDONE 0.5mg tablet PO SCH ×3 (08:00→19:14)
[2017-09-17] MEDS: amiodarone 200mg tablet PO SCH ×2 (08:00→08:59)
[2017-09-17] MEDS: famotidine 20mg tablet PO SCH ×3 (08:00→19:14)
[2017-09-17] MEDS: atorvastatin 10mg tablet PO SCH ×2 (08:00→08:59)
[2017-09-17] MEDS: aspirin 81mg tablet.DR PO SCH ×2 (08:00→08:58)
[2017-09-17] MEDS: linezolid 600mg tablet PO SCH ×3 (08:00→19:15)
[2017-09-17] MEDS: enoxaparin 40mg/0.4ml syringe SUBCUT SCH (09:05)
[2017-09-17] MEDS: docusate sod 100mg capsule PO SCH ×2 (09:09→19:14)
[2017-09-17 19:00] VITALS: BP 146/67
[2017-09-17] MEDS: Melatonin 3mg tablet PO SCH (19:18)
[2017-09-18] MEDS: traMADol 50MG tablet PO SCH ×3 (01:05→13:39)
[2017-09-18 06:00] VITALS: BP 105/72
[2017-09-18] MEDS: aspirin 81mg tablet.DR PO SCH (07:52)
[2017-09-18] MEDS: lactobacillus rhamnosus 10,000 MMU CELLS/CAPSULE PO SCH (07:52)
[2017-09-18] MEDS: amiodarone 200mg tablet PO SCH (07:53)
[2017-09-18] MEDS: famotidine 20mg tablet PO SCH (07:53)
[2017-09-18] MEDS: linezolid 600mg tablet PO SCH (07:53)
[2017-09-18] MEDS: risperiDONE 0.5mg tablet PO SCH (07:53)
[2017-09-18] MEDS: levoTHYROXINE 25mcg tablet PO SCH (07:53)
[2017-09-18] MEDS: atorvastatin 10mg tablet PO SCH (07:53)
[2017-09-18] MEDS: enoxaparin 40mg/0.4ml syringe SUBCUT SCH (07:54)
[2017-09-18] MEDS: docusate sod 100mg capsule PO SCH (08:00)
[2017-09-18] MEDS: K and/or MAG REPLACEMENT MC SCH (08:00)
[2017-09-18 10:00] VITALS: BP 107/56
== END 2017-09-18 14:45 | DRG 853 ==
LOC: ER 16:34 → ED HOLD 18:10 → ORTHO 4S 21:15
PROVIDERS: ADMIT Internal Medicine; ATTEND Family Medicine
PROC: 0SRR0JZ Replacement of Right Hip Joint, Femoral Surface with Synthetic Substitute, Open Approach (ICD-10-PCS; principal; 2017-09-13 16:11)
DX: A41.9 Sepsis, unspecified organism (principal); S72.001A Fracture of unspecified part of neck of right femur, initial encounter for closed fracture; E43 Unspecified severe protein-calorie malnutrition; N39.0 Urinary tract infection, site not specified; E87.1 Hypo-osmolality and hyponatremia; I25.10 Atherosclerotic heart disease of native coronary artery without angina pectoris; G30.9 Alzheimer's disease, unspecified; F02.80 Dementia in other diseases classified elsewhere, unspecified severity, without behavioral disturbance, psychotic disturbance, mood disturbance, and anxiety; B96.89 Other specified bacterial agents as the cause of diseases classified elsewhere; D64.9 Anemia, unspecified; R33.8 Other retention of urine; E03.9 Hypothyroidism, unspecified; N50.89 Other specified disorders of the male genital organs; M10.9 Gout, unspecified; N13.9 Obstructive and reflux uropathy, unspecified; W18.39XA Other fall on same level, initial encounter; I12.9 Hypertensive chronic kidney disease with stage 1 through stage 4 chronic kidney disease, or unspecified chronic kidney disease; I48.91 Unspecified atrial fibrillation; B95.61 Methicillin susceptible Staphylococcus aureus infection as the cause of diseases classified elsewhere; B95.4 Other streptococcus as the cause of diseases classified elsewhere; K21.9 Gastro-esophageal reflux disease without esophagitis; N18.3 Chronic kidney disease, stage 3 (moderate); N40.1 Benign prostatic hyperplasia with lower urinary tract symptoms; Z16.24 Resistance to multiple antibiotics; Z99.3 Dependence on wheelchair; Z95.0 Presence of cardiac pacemaker; Z90.49 Acquired absence of other specified parts of digestive tract; Z79.899 Other long term (current) drug therapy; Z79.82 Long term (current) use of aspirin; Y93.89 Activity, other specified; Y92.89 Other specified places as the place of occurrence of the external cause; Y99.8 Other external cause status; Z68.23 Body mass index [BMI] 23.0-23.9, adult
CPT/HCPCS: 36415; 71045; 80047; 80053; 81001; 83735; 84439; 84443; 85025; 85610; 86885; 86900; 86901; 86920; 87070; 87077; 87088; 87186; 93005; 96374; 96375; 97110; 97161; 97530; 99285; A4315; A6209; A6212; A6213; A6222; A6258; A6446; A6449; A7000; A9272; C1776; C9250; J0690; J0696; J1650; J1956; J2001; J2060; J2270; J2405; J2704; J2710; J3010; J3370; J3490; J7030; J7120